=== PATIENT | female | born 1930 | race Caucasian/White ===

== ENCOUNTER → 2017-12-17 | Outpatient (CLI) | payer MEDICARE, OTHER | LOC: COL.PUL 08:00 | DX: R06.09 Other forms of dyspnea (principal) ==

== ENCOUNTER 2018-06-04 10:58 | Emergency (ER) | payer MEDICARE, OTHER ==
[~2018-06-04] VITALS: Ht 152.4 cm; Wt 60.5 kg
[2018-06-04 11:18] VITALS: BP 192/78; TEMP 98.5
[2018-06-04 11:30] LABS: COLLECTION METHOD CLEAN CATCH
[2018-06-04] MEDS ORDERED: HYZAAR 50-12.1 UDTAB PO (11:32)
[2018-06-04] MEDS ORDERED: PROAIR HFA0.09 MG/AC IH (11:33)
[2018-06-04] MEDS ORDERED: XARELTO15 MG PO (11:33)
[2018-06-04 11:36] LABS: PH 6 (5-8); SQUAMOUS EPITHELIAL None Seen /hpf; URINE APPEARANCE Hazy; URINE BACTERIA Rare /hpf; URINE BILIRUBIN Negative (NEGATIVE); URINE BLOOD 3+ (NEGATIVE); URINE COLOR Yellow; URINE GLUCOSE Negative (NEGATIVE); URINE KETONE Negative (NEGATIVE); URINE LEUKOCYTE ESTERASE 3+ (NEGATIVE); URINE NITRATE Negative (NEGATIVE); URINE PROTEIN(semi-quant) Negative (NEGATIVE); URINE RBC 20-50 /hpf; URINE UROBILINOGEN Negative (NEGATIVE)
[2018-06-04 11:50] LABS: BASO # 0.1 (0.0-0.2); BASO % 0.6 % (0.0-2.0); EOS # 0.1 (0.0-0.7); EOS % 1.4 % (0-4.0); GRAN # 6.5 (1.4-6.5); GRAN % 69.9 % (42.2-75.2); HEMOGLOBIN 10.1 g/dl (12.5-16.0); LYMPH # 1.8 (1.2-3.4); LYMPH % 19.6 % (20.0-51.0); MEAN CELL VOLUME 80 fl (80.0-100.0); MEAN CORPUSCULAR HEMOGLOBIN 24 pg (27.0-31.0); MEAN CORPUSCULAR HGB CONC 31 g/dl (33.0-37.0); MEAN PLATELET VOLUME 9.4 fl (7.4-10.4); MONO # 0.8 (0.1-0.6); MONO % 8.2 % (1.7-9.3); PLATELET COUNT 322 K/mm3 (130-400); RED BLOOD COUNT 4.14 M/mm3 (4.10-5.30); REDCELL DISTRIBUTION WIDTH-CV 16.3 % (11.5-14.5)
[2018-06-04 11:52] LABS: HEMATOCRIT 33.1 % (37.0-47.0)
[2018-06-04 12:02] LABS: ALBUMIN 4.2 gm/dL (3.5-5.0); BILIRUBIN,TOTAL 0.4 mg/dL (0.0-1.0); CALCIUM 9.4 mg/dL (8.4-10.2); CREATININE, serum 0.72 mg/dL (0.52-1.25); POTASSIUM 3.7 mmol/L (3.4-5.0); TOTAL PROTEIN 7.5 gm/dL (6.4-8.2)
[2018-06-04] MEDS ORDERED: OMNICEF 300MG300 MG PO (12:04)
[2018-06-04 12:14] VITALS: PULSE 81
== END 2018-06-04 12:15 | disposition home or self-care (01) ==
LOC: COL.ER 10:58
PROVIDERS: Emergency Medicine
DX: N39.0 Urinary tract infection, site not specified (principal); Z90.89 Acquired absence of other organs; Z90.710 Acquired absence of both cervix and uterus; Z88.0 Allergy status to penicillin; Z79.01 Long term (current) use of anticoagulants; Z86.718 Personal history of other venous thrombosis and embolism

== ENCOUNTER 2018-06-14 08:58 | Day surgery (SDC) | payer MEDICARE, OTHER ==
[~2018-06-14] VITALS: Ht 152.4 cm; Wt 58.7 kg
[2018-06-14] VITALS (7 sets, daily range): BP systolic 156–193; BP diastolic 57–98; PULSE 54–80; TEMP 97.7–97.9
[~2018-06-14 08:58] MED LIST: HYZAAR 50-12.1 UDTAB PO; OMNICEF 300MG300 MG PO; PROAIR HFA0.09 MG/AC IH; XARELTO15 MG PO
[2018-06-14] MEDS ORDERED: CARDIZEM CD 18180 MG PO (10:31)
[2018-06-14] MEDS ORDERED: FOSAMAX 70MG TA70 MG PO (10:32)
[2018-06-14] MEDS ORDERED: ZYLOPRIM 300MG300 MG PO (10:32)
[2018-06-14] MEDS ORDERED: FLOVENT 110MCG7.9 GM (10:33)
[2018-06-14] MEDS ORDERED: PRILOSEC 20MG20 MG PO (10:33)
[2018-06-14] MEDS ORDERED: SYNTHROID0.1 MG/TAB (10:34)
[2018-06-14] MEDS ORDERED: DOXYCYCLINE 10100 MG (10:36)
[2018-06-14] MEDS ORDERED: ZOCOR 20MG20 MG (10:36)
--- NOTE | 2018-06-14 12:10 | NUR ---
Pt to [facility] via cart from [employer]. Pt drowsy, but awake. Pt ambulates to recliner with stand by assistance. Pt denies pain or nausea. Warm blankets given. Tea, muffin and applesauce given per pt request. Daughter in room. Will continue to monitor. Call light within reach.
--- NOTE | 2018-06-14 12:25 | NUR ---
Pt tolerating food and fluids without difficulties. Denies needs. Call light within reach.
--- NOTE | 2018-06-14 12:40 | NUR ---
Pt continues to rest. Denies needs. Call light within reach.
--- NOTE | 2018-06-14 12:55 | NUR ---
Pt continues to rest. Denies needs. Call light within reach.
--- NOTE | 2018-06-14 13:10 | NUR ---
Dr. Hogue into consult with pt and daughter.
--- NOTE | 2018-06-14 13:25 | NUR ---
Discharge instructions reviewed. Pt voices understanding. IV site discontinued with all parts intact. Pt up to dress. Call light within reach.
--- NOTE | 2018-06-14 13:50 | NUR ---
Pt escorted to private car via wheel chair. Pt accompanied home by her daughter.
== END 2018-06-14 13:50 | disposition home or self-care (01) ==
LOC: SDCO 08:58
DX: D12.0 Benign neoplasm of cecum (principal); D12.4 Benign neoplasm of descending colon; D13.2 Benign neoplasm of duodenum; K57.30 Diverticulosis of large intestine without perforation or abscess without bleeding; K64.0 First degree hemorrhoids; D50.9 Iron deficiency anemia, unspecified; K44.9 Diaphragmatic hernia without obstruction or gangrene; J44.9 Chronic obstructive pulmonary disease, unspecified; I82.401 Acute embolism and thrombosis of unspecified deep veins of right lower extremity; K21.9 Gastro-esophageal reflux disease without esophagitis; I10 Essential (primary) hypertension; E03.9 Hypothyroidism, unspecified; M10.9 Gout, unspecified; Z79.01 Long term (current) use of anticoagulants; Z80.0 Family history of malignant neoplasm of digestive organs; Z86.010 Personal history of colon polyps; Z96.653 Presence of artificial knee joint, bilateral; Z90.710 Acquired absence of both cervix and uterus; Z83.71 Family history of colonic polyps; Z79.82 Long term (current) use of aspirin; Z88.0 Allergy status to penicillin; Z88.1 Allergy status to other antibiotic agents; Z88.8 Allergy status to other drugs, medicaments and biological substances
CPT/HCPCS: J2704; J7030